=== PATIENT | male | born 1975 | race Caucasian/White ===

== ENCOUNTER 2017-05-17 14:47 | Emergency (ER) | payer OTHER ==
--- NOTE | 2017-05-17 15:18 | RAD ---
CHEST 1 VIEW: Date: 05/17/17 HISTORY: Cough. FINDINGS: The cardiac silhouette is magnified by projection. Pulmonary vasculature is unremarkable. Mediastinu m is midline. There is no confluent air space consolidation or evidence of pneumothorax. IMPRESSION: No active cardiopulmonary abnormalities are demonstrated. POS: [facility]
[2017-05-17 15:22] LABS: #Basophils 0.1 thou/uL (0.0-0.2); #Eosinphils 0.6 thou/uL (0.0-0.7); #Lymphocytes 2.1 thou/uL (1.20-3.40); #Monocytes 1.1 thou/uL (0.11-0.59); #Neutrophils 12.1 thou/uL (1.40-6.50); %Basophils 0.5 % (0.0-1.0); %Eosinophils 3.8 % (0.0-10.0); %Lymphocytes 13.3 % (21.0-51.0); %Neutrophils 75.5 % (42.0-75.0); Hemoglobin 16.5 g/dL (14.0-18.0); Mean Corpuscular HGB CONC 33.2 g/dL (32.0-36.0); Mean Corpuscular Hemoglobin 29.8 pg (27.0-31.0); Mean Corpuscular Volume 89.7 fl (80.0-94.0); Mean Platelet Volume 7.1 fL (7.4-10.4); Platelet Count 314 thou/uL (130-400); RBC Distribution Width 12.5 % (11.5-14.5); Red Blood Cell (RBC) Count 5.54 mill/uL (4.70-6.10)
[2017-05-17] MEDS ORDERED: Labetalol HCl 100 MG/20 ML VIAL ONE (15:29)
[2017-05-17] MEDS ORDERED: Aspirin 325 MG TAB ONE (15:29)
[2017-05-17 15:47] LABS: ALT (SGPT) 30 U/L (8-55); AST (SGOT) 22 U/L (5-34); Albumin 4.1 g/dL (3.5-5.0); Alkaline Phosphatase 96 U/L (40-150); Anion Gap 12 mmol/L (10-20); BUN (Urea Nitrogen) 20 mg/dL (8.9-20.6); Bilirubin, Total 0.4 mg/dL (0.2-1.2); Calc. Creatinine Clearance 0 mL/min (70-130); Calcium 9.4 mg/dL (7.8-10.44); Carbon Dioxide 28 mmol/L (22-29); Chloride 103 mmol/L (98-107); Estimated GFR-MDRD 70; Globulin 2.8 g/dL (2.4-3.5); Glucose 81 mg/dL (70-105); Potassium 5.3 mmol/L (3.5-5.1); Protein, Total 6.9 g/dL (6.0-8.3); Sodium 138 mmol/L (136-145)
[2017-05-17] MEDS ORDERED: NEOMYCIN-POLYMYXIN-HC EAR SUSP 200 DROP/10 ML BOT ONE (15:57)
[2017-05-17] MEDS ORDERED: Naproxen 500 MG TAB ONE (15:57)
[2017-05-17] MEDS ORDERED: Benzonatate 100 MG CAP ONE (15:57)
[2017-05-17] MEDS ORDERED: Cephalexin 500 MG CAP ONE (15:57)
[2017-05-17] MEDS ORDERED: Ondansetron HCl/PF 4 MG/2 ML Vial ONE (16:38)
[2017-05-17] MEDS ORDERED: Ketorolac Tromethamine 30 MG/ML VIAL ONE (16:38)
[2017-05-17] MEDS ORDERED: cloNIDine HCl 0.1 MG TAB ONE (17:22)
[2017-05-17 18:15] LABS: Acetaminophen Less than 6.0 mcg/mL (10.0-30.0); Alcohol Less than 10 mg/dL (Less than 10); Bacteria/HPF None Seen HPF (None Seen); Bilirubin Negative (Negative); Blood, Urine Negative (Negative); Clarity Clear (Clear); Glucose, Urine (Dipstick) Negative (Negative); Leukocyte Negative (Negative); Nitrite Negative (Negative); Other Microscopic Description C&S SET UP; Protein, Urine (Dipstick) Negative (Neg-Trace); RBC/HPF None Seen HPF (0-3); Salicylate Less than 8.0 mg/dL (15.0-30.0); Specific Gravity, Urine 1.025 (1.005-1.030); Squamous Epithelial 0-3 HPF (0-3); Urobilinogen 0.2 mg/dL (0.2-1.0); WBC/HPF None Seen HPF (0-3)
[2017-05-17 18:42] LABS: Amphetamine Detected (NotDetected); Barbiturates Screen Not Detected (NotDetected); Benzodiazepine Screen Not Detected (NotDetected); Cocaine Metabolite Screen Not Detected (NotDetected); Medtox Control Line Valid? VALID (VALID); Methadone Not Detected (NotDetected); Methamphetamine Detected (NotDetected); Opiate Screen Not Detected (NotDetected); Oxycodone Screen Not Detected (NotDetected); Phencyclidine (PCP) Not Detected (NotDetected); THC/Cannabinoid Screen Not Detected (NotDetected); Tricyclic Screen Not Detected (NotDetected)
== END 2017-05-17 19:10 | disposition home or self-care (01) ==
LOC: MADERS 14:47
DX: H60.91 Unspecified otitis externa, right ear (principal); J06.9 Acute upper respiratory infection, unspecified; F19.10 Other psychoactive substance abuse, uncomplicated; I10 Essential (primary) hypertension; F17.210 Nicotine dependence, cigarettes, uncomplicated
CPT/HCPCS: 36415; 71010; 80053; 80306; 80307; 81001; 85025; 87086; 96374; 96375; 96376; J1885; J2405

== ENCOUNTER 2018-10-06 12:32 | Emergency (ER) | payer OTHER ==
[2018-10-06 13:23] LABS: #Eosinphils 0.2 thou/uL (0.0-0.7); #Lymphocytes 1.5 thou/uL (1.20-3.40); #Monocytes 0.4 thou/uL (0.11-0.59); #Neutrophils 8.5 thou/uL (1.40-6.50); %Basophils 0.3 % (0.0-1.0); %Eosinophils 2.3 % (0.0-10.0); %Lymphocytes 13.7 % (21.0-51.0); %Monocytes 3.9 % (0.0-10.0); %Neutrophils 79.8 % (42.0-75.0); Hemoglobin 16.4 g/dL (14.0-18.0); Mean Corpuscular HGB CONC 32.2 g/dL (32.0-36.0); Mean Platelet Volume 7.4 fL (7.4-10.4); Platelet Count 285 thou/uL (130-400); RBC Distribution Width 11.9 % (11.5-14.5); Red Blood Cell (RBC) Count 5.85 mill/uL (4.70-6.10); White Blood Cell (WBC) Count 10.6 thou/uL (4.8-10.8)
[2018-10-06 13:36] LABS: ALT (SGPT) 58 U/L (8-55); AST (SGOT) 41 U/L (5-34); Albumin 3.8 g/dL (3.5-5.0); Alkaline Phosphatase 90 U/L (40-150); Anion Gap 13 mmol/L (10-20); BUN (Urea Nitrogen) 21 mg/dL (8.9-20.6); Bilirubin, Total 0.4 mg/dL (0.2-1.2); Calc. Creatinine Clearance 0 mL/min (70-130); Calcium 9.1 mg/dL (7.8-10.44); Carbon Dioxide 26 mmol/L (22-29); Chloride 104 mmol/L (98-107); Estimated GFR-MDRD 75; Globulin 2.7 g/dL (2.4-3.5); Glucose 192 mg/dL (70-105); Potassium 4.1 mmol/L (3.5-5.1); Protein, Total 6.5 g/dL (6.0-8.3); Sodium 139 mmol/L (136-145)
[2018-10-06] MEDS ORDERED: Nitroglycerin 2% Ointment 1 INCH/1 GM Packet ONE (13:53)
[2018-10-06] MEDS ORDERED: Aspirin 325 MG TAB ONE (13:53)
[2018-10-06] MEDS ORDERED: Nitroglycerin 0.4 MG TAB 1 EACH ONE (13:53)
[2018-10-06 13:56] LABS: CKMB 1.5 ng/mL (0-6.6)
--- NOTE | 2018-10-06 13:56 | RAD ---
CHEST 1 VIEW: Date: 10/06/18 INDICATION: Dyspnea. COMPARISON: Prior exam dated 05/17/17. FINDINGS: There is stable cardiomegaly. Lungs are clear. No pleural effusion is evident. No acute osseous abnor mality is evident. IMPRESSION: Stable cardiomegaly. POS: [facility]
== END 2018-10-06 15:52 | disposition short-term general hospital (02) ==
LOC: MADERS 12:32 → EEVIPCON 12:32 → MADERS 15:52
DX: R07.9 Chest pain, unspecified (principal); R94.31 Abnormal electrocardiogram [ECG] [EKG]; I10 Essential (primary) hypertension; F17.210 Nicotine dependence, cigarettes, uncomplicated
CPT/HCPCS: 36415; 71045; 80053; 82553; 83880; 84484; 85025; 93005

== ENCOUNTER 2018-10-10 16:33 | Emergency (ER) | payer SELFPAY | END 2018-10-10 17:00 | disposition home or self-care (01) | LOC: MADERS 16:33 | DX: S30.1XXA Contusion of abdominal wall, initial encounter (principal); I10 Essential (primary) hypertension; F17.210 Nicotine dependence, cigarettes, uncomplicated; X58.XXXA Exposure to other specified factors, initial encounter | CPT/HCPCS: 99283 ==

== ENCOUNTER 2021-08-16 18:24 | Emergency (ER) | payer SELFPAY ==
[2021-08-16 19:28] LABS: #Basophils 0.1 thou/uL (0.0-0.2); #Eosinphils 0.1 thou/uL (0.0-0.7); #Lymphocytes 1.1 thou/uL (1.20-3.40); #Monocytes 0.6 thou/uL (0.11-0.59); #Neutrophils 8.7 thou/uL (1.40-6.50); %Eosinophils 1.4 % (0.0-10.0); %Lymphocytes 10.2 % (21.0-51.0); %Monocytes 5.2 % (0.0-10.0); %Neutrophils 82.2 % (42.0-75.0); Hemoglobin 16.2 g/dL (14.0-18.0); Mean Corpuscular HGB CONC 31.7 g/dL (32.0-36.0); Mean Corpuscular Hemoglobin 28.5 pg (27.0-31.0); Mean Corpuscular Volume 89.8 fL (78.0-98.0); Mean Platelet Volume 7.7 fL (7.4-10.4); Platelet Count 232 thou/uL (130-400); RBC Distribution Width 13.6 % (11.5-14.5); Red Blood Cell (RBC) Count 5.68 mill/uL (4.70-6.10); White Blood Cell (WBC) Count 10.5 thou/uL (4.8-10.8)
[2021-08-16 19:45] LABS: ALT (SGPT) 29 U/L (8-55); AST (SGOT) 22 U/L (5-34); Albumin 3.7 g/dL (3.5-5.0); Alkaline Phosphatase 67 U/L (40-110); Anion Gap 13 mmol/L (10-20); BUN (Urea Nitrogen) 20 mg/dL (8.9-20.6); Bilirubin, Total 1.4 mg/dL (0.2-1.2); Calc. Creatinine Clearance 0 mL/min (70-130); Calcium 9.6 mg/dL (7.8-10.44); Carbon Dioxide 25 mmol/L (22-29); Chloride 105 mmol/L (98-107); Globulin 2.4 g/dL (2.4-3.5); Glucose 121 mg/dL (70-105); Potassium 4.5 mmol/L (3.5-5.1); Protein, Total 6.1 g/dL (6.0-8.3); Sodium 138 mmol/L (136-145)
[2021-08-16 20:15] LABS: Bilirubin Small (Negative); Blood, Urine Trace (Negative); Clarity Clear (Clear); Glucose, Urine (Dipstick) Negative (Negative); Ketone, Urine Negative (Negative); Leukocyte Negative (Negative); Nitrite Negative (Negative); Protein, Urine (Dipstick) 100 mg/dL (Neg-Trace); Specific Gravity, Urine 1.025 (1.005-1.030); Urobilinogen 0.2 mg/dL (Less than 2); pH, Urine 5.5 (5.0-9.0)
[2021-08-16 20:16] LABS: CKMB 5.8 ng/mL (0-6.6)
[2021-08-16 20:22] LABS: RBC/HPF 0-3 HPF (0-3); Squamous Epithelial 0-3 HPF (0-3); WBC/HPF None Seen HPF (0-3)
[2021-08-16 20:23] LABS: Mucous/LPF 3+ LPF (<2+)
[2021-08-16 20:25] LABS: Amphetamine Detected (NotDetected); Barbiturates Screen Not Detected (NotDetected); Benzodiazepine Screen Not Detected (NotDetected); Cocaine Metabolite Screen Not Detected (NotDetected); Medtox Control Line Valid? VALID (VALID); Methadone Not Detected (NotDetected); Methamphetamine Detected (NotDetected); Opiate Screen Not Detected (NotDetected); Oxycodone Screen Not Detected (NotDetected); Phencyclidine (PCP) Not Detected (NotDetected); THC/Cannabinoid Screen Not Detected (NotDetected); Tricyclic Screen Not Detected (NotDetected)
[2021-08-16] MEDS ORDERED: Aspirin Chewable 81 MG TAB ONE (21:32)
[2021-08-16] MEDS ORDERED: Furosemide 40 MG/4 ML VIAL ONE (21:32)
[2021-08-16] MEDS ORDERED: methylPREDNISolone Sod Succ/PF 125 MG/2 ML VIAL ONE (23:04)
[2021-08-16 23:44] LABS: CKMB 5.2 ng/mL (0-6.6)
[2021-08-17 20:39] LABS: SARS-CoV-2 PCR by NAA Not Detected (NotDetected)
== END 2021-08-17 00:14 | disposition home or self-care (01) ==
LOC: MADERS 18:24
DX: J44.1 Chronic obstructive pulmonary disease with (acute) exacerbation (principal); I25.9 Chronic ischemic heart disease, unspecified; I11.0 Hypertensive heart disease with heart failure; I50.9 Heart failure, unspecified; F15.10 Other stimulant abuse, uncomplicated; Z20.822 Contact with and (suspected) exposure to COVID-19; F17.210 Nicotine dependence, cigarettes, uncomplicated
CPT/HCPCS: 71045; 80053; 80306; 81003; 81015; 82550; 82553; 83880; 84484; 85025; 85379; 86140; 87804; 93005; 96374; 96375; 99407; J1940; J2930; J7620; U0003; U0005

== ENCOUNTER 2022-10-18 16:25 | Emergency (ER) | payer SELFPAY ==
[~2022-10-18 16:25] MED LIST: Iopamidol 370 76% 100 ML VIAL ONE
[2022-10-18] MEDS ORDERED: Ipratropium/Albuterol 3 ML NEB ONE (16:56)
[2022-10-18] MEDS ORDERED: Furosemide 40 MG/4 ML VIAL ONE (16:56)
[2022-10-18 17:15] LABS: #Basophils 0.2 thou/uL (0.0-0.2); #Eosinphils 1.7 thou/uL (0.0-0.7); #Monocytes 0.9 thou/uL (0.11-0.59); #Neutrophils 5.4 thou/uL (1.40-6.50); %Basophils 2.3 % (0.0-1.0); %Eosinophils 16.9 % (0.0-10.0); %Lymphocytes 19.7 % (21.0-51.0); %Monocytes 8.4 % (0.0-10.0); %Neutrophils 52.7 % (42.0-75.0); Hemoglobin 17.4 g/dL (14.0-18.0); Mean Corpuscular HGB CONC 32.6 g/dL (32.0-36.0); Mean Corpuscular Hemoglobin 28.5 pg (27.0-31.0); Mean Corpuscular Volume 87.2 fl (78.0-98.0); Mean Platelet Volume 8.4 fL (7.4-10.4); Platelet Count 208 10x3/uL (130-400); RBC Distribution Width 12.9 % (11.5-14.5); Red Blood Cell (RBC) Count 6.12 mill/uL (4.70-6.10); White Blood Cell (WBC) Count 10.3 10x3/uL (4.8-10.8)
[2022-10-18 17:26] LABS: INR-International Normal Ratio 1.2; PTT 25.6 sec (22.9-36.1); Prothrombin Time 15.5 sec (12.0-14.7)
[2022-10-18 17:33] LABS: ALT (SGPT) 39 U/L (8-55); AST (SGOT) 41 U/L (5-34); Albumin 3.9 g/dL (3.5-5.0); Alkaline Phosphatase 71 U/L (40-110); Anion Gap 18 mmol/L (10-20); BUN (Urea Nitrogen) 17 mg/dL (8.9-20.6); Bilirubin, Total 2.1 mg/dL (0.2-1.2); Calc. Creatinine Clearance 0 mL/min (70-130); Carbon Dioxide 21 mmol/L (22-29); Chloride 106 mmol/L (98-107); Estimated GFR 70; Globulin 1.7 g/dL (2.4-3.5); Glucose 102 mg/dL (70-105); Potassium 4.6 mmol/L (3.5-5.1); Protein, Total 5.6 g/dL (6.0-8.3); Sodium 140 mmol/L (136-145)
[2022-10-18] MEDS ORDERED: Nitroglycerin 2% Ointment 1 INCH/1 GM Packet ONE (17:42)
[2022-10-18] MEDS ORDERED: Aspirin 325 MG TAB ONE (17:42)
[2022-10-18 17:54] LABS: CKMB 4.8 ng/mL (0-6.6)
[2022-10-18] MEDS ORDERED: Sodium Chloride 0.9% 100 ML ONE (18:43)
[2022-10-18] MEDS ORDERED: cefTRIAXone\\ROCEPHIN 2 GM VIAL ONE (18:43)
[2022-10-18] MEDS ORDERED: Sodium Chloride 0.9% 250 ML 250 ML ONE (19:44)
[2022-10-18] MEDS ORDERED: Azithromycin 500 MG VIAL ONE (19:44)
[2022-10-18 19:53] LABS: SARS-CoV-2 NAA Rapid Test Not Detected (NotDetected)
[2022-10-18 20:43] LABS: Acetaminophen Less than 10.0 mcg/mL (10.0-30.0); Alcohol Less than 10 mg/dL (Less than 10); Salicylate Less than 8.0 mg/dL (15.0-30.0)
[2022-10-18 21:00] LABS: Cocaine Metabolite Screen Not Detected (NotDetected); Methamphetamine Detected (NotDetected); Phencyclidine (PCP) Not Detected (NotDetected); THC/Cannabinoid Screen Detected (NotDetected)
[2022-10-18 21:01] LABS: Amphetamine Detected (NotDetected); Barbiturates Screen Not Detected (NotDetected); Benzodiazepine Screen Not Detected (NotDetected); Medtox Control Line Valid? VALID (VALID); Methadone Not Detected (NotDetected); Opiate Screen Not Detected (NotDetected); Oxycodone Screen Not Detected (NotDetected); Tricyclic Screen Not Detected (NotDetected)
== END 2022-10-18 21:21 | disposition short-term general hospital (02) ==
LOC: MADERS 16:25
DX: I11.0 Hypertensive heart disease with heart failure (principal); I50.9 Heart failure, unspecified; I44.7 Left bundle-branch block, unspecified; I26.93 Single subsegmental thrombotic pulmonary embolism without acute cor pulmonale; Z20.822 Contact with and (suspected) exposure to COVID-19; E78.00 Pure hypercholesterolemia, unspecified; J44.9 Chronic obstructive pulmonary disease, unspecified; Z87.891 Personal history of nicotine dependence; Z79.82 Long term (current) use of aspirin
CPT/HCPCS: 36415; 71045; 71275; 80053; 80306; 80307; 82553; 83605; 83880; 84484; 85025; 85379; 85610; 85730; 87040; 93005; 96365; 96367; 96372; 96375; J0456; J0696; J1650; J1940; J3490; J7050; J7620; Q9967; U0002

== ENCOUNTER 2023-06-01 17:53 | Emergency (ER) | payer OTHER, SELFPAY ==
[2023-06-01] MEDS ORDERED: Meropenem 1 GM VIAL ONE (19:05)
[2023-06-01] MEDS ORDERED: Vancomycin 1 GM VIAL ONE (19:05)
[2023-06-01] MEDS ORDERED: Sodium Chloride 0.9% 1,000 ML ONE ×2 (19:05→20:44)
[2023-06-01] MEDS ORDERED: Clindamycin/D5W 900 mg/50 ml Premix Bag ONE (19:05)
[2023-06-01] MEDS ORDERED: Sodium Chloride 0.9% 250 ML 250 ML ONE (19:06)
[2023-06-01] MEDS ORDERED: Sodium Chloride 0.9% 100 ML ONE (19:06)
[2023-06-01 19:20] LABS: INR-International Normal Ratio 2.2; Prothrombin Time 25.4 sec (12.0-14.7)
[2023-06-01 19:23] LABS: Hematocrit 42.6 % (42.0-52.0); Hemoglobin 13.2 g/dL (14.0-18.0); Mean Corpuscular Hemoglobin 25.4 pg (27.0-31.0); Mean Platelet Volume 8.8 fL (7.4-10.4); Platelet Count 239 10x3/uL (130-400); RBC Distribution Width 19.4 % (11.5-14.5); White Blood Cell (WBC) Count 20.9 10x3/uL (4.8-10.8)
[2023-06-01 19:28] LABS: Base Excess-Venous 0.8 mmol/L (-2.0 to 3.0); Bicarbonate (HCO3v) 24.5 mmol/L (22.0-28.0); CO2 Tension (PvCO2) 35.7 mmHg (42.0-51.0); Calcium, Ionized 1.02 mmol/L (1.15-1.33); Chloride 96 mmol/L (98-107); Hemoglobin - Calc 15.5 g/dL (14.0-18.0); Potassium 3.4 mmol/L (3.5-5.1); Sodium 132 mmol/L (138-145); T. Carbon Dioxide 25.6 mmol/L (22.0-28.0); vO2 Saturation-calc 98.7 % (60.0-85.0)
[2023-06-01 19:31] LABS: ALT (SGPT) 47 U/L (8-55); AST (SGOT) 101 U/L (5-34); Albumin 2.6 g/dL (3.5-5.0); Alkaline Phosphatase 82 U/L (40-110); Anion Gap 21 mmol/L (10-20); BUN (Urea Nitrogen) 30 mg/dL (8.9-20.6); Bilirubin, Total 3.9 mg/dL (0.2-1.2); CK (CPK) 1762 U/L (30-200); Calc. Creatinine Clearance 0 mL/min (70-130); Calcium 7.9 mg/dL (7.8-10.44); Carbon Dioxide 20 mmol/L (22-29); Chloride 96 mmol/L (98-107); Estimated GFR 61; Globulin 2.2 g/dL (2.4-3.5); Glucose 116 mg/dL (70-105); Potassium 3.6 mmol/L (3.5-5.1); Protein, Total 4.8 g/dL (6.0-8.3); Sodium 133 mmol/L (136-145)
[2023-06-01 19:36] LABS: Band 19 % (5-11); Eosinophils 1 % (0-10); Lymphocytes 3 % (21-51); MDiff Complete? YES; Monocytes 2 % (0-10); Neutrophil 75 % (42-75); Platelet Adequacy Comment Appears Adequate
[2023-06-01 19:40] LABS: Acetaminophen Less than 10 mcg/mL (10.0-30.0); Alcohol Less than 10.0 mg/dL (Less than 10); Lipase 9 U/L (8-78); Magnesium 1.4 mg/dL (1.6-2.6); Salicylate Less than 8.0 mg/dL (15.0-30.0)
[2023-06-01 20:04] LABS: Troponin I 0.331 ng/mL (< 0.028)
[2023-06-01] MEDS ORDERED: Morphine 2 MG/ML VIAL ONE (20:38)
[2023-06-01] MEDS ORDERED: Magnesium 2 GM/50 ML BAG (IN WATER) ONE (20:44)
[2023-06-01 23:23] LABS: Cocaine Metabolite Screen Not Detected (NotDetected); Methamphetamine Detected (NotDetected); Opiate Screen Detected (NotDetected); Phencyclidine (PCP) Not Detected (NotDetected); THC/Cannabinoid Screen Not Detected (NotDetected)
[2023-06-01 23:24] LABS: Amphetamine Detected (NotDetected); Barbiturates Screen Not Detected (NotDetected); Benzodiazepine Screen Not Detected (NotDetected); Bilirubin Moderate (Negative); Blood, Urine Negative (Negative); CAUTI Indications for Culture Alt mental st,lethar; Clarity Slightly Cloudy (Clear); Glucose, Urine (Dipstick) Negative (Negative); Ketone, Urine Negative (Negative); Leukocyte Negative (Negative); Methadone Not Detected (NotDetected); Nitrite Negative (Negative); Oxycodone Screen Not Detected (NotDetected); Protein, Urine (Dipstick) 30 mg/dL (Neg-Trace); RBC/HPF 0-3 HPF (0-3); Specific Gravity, Urine 1.028 (1.002-1.036); Squamous Epithelial 0-3 HPF (0-3); Tricyclic Screen Not Detected (NotDetected); WBC/HPF 0-3 HPF (0-3); pH, Urine 5.5 (5.0-9.0)
[2023-06-01 23:25] LABS: Bacteria/HPF 3+ HPF (None Seen); Urine Culture Reflex No No
== END 2023-06-01 23:15 | disposition short-term general hospital (02) ==
LOC: MADERS 17:53
DX: R41.82 Altered mental status, unspecified (principal); L03.113 Cellulitis of right upper limb; I11.0 Hypertensive heart disease with heart failure; I50.9 Heart failure, unspecified; J44.9 Chronic obstructive pulmonary disease, unspecified; Z87.891 Personal history of nicotine dependence
CPT/HCPCS: 51701; 70450; 70486; 71045; 72125; 80053; 80306; 80307; 81001; 82330; 82550; 82803; 83605; 83690; 83735; 83880; 84443; 84484; 85025; 85610; 86140; 87040; 87077; 87149; 87186; 96365; 96366; 96367; 96375; J2185; J2272; J3370; J3475; J3490; J7050

== ENCOUNTER 2024-04-25 12:26 | Emergency (ER) | payer MEDICAID, OTHER ==
[~2024-04-25 12:26] MED LIST changes: +Sodium Chloride 0.9% 100 ML BAG ONE
[2024-04-25] MEDS ORDERED: Sodium Chloride 0.9% 250 ML 250 ML ONE (13:19)
[2024-04-25] MEDS ORDERED: Albuterol 2.5 MG (3 mL) NEB ONE (13:19)
[2024-04-25] MEDS ORDERED: Ipratropium Bromide 2.5 ml Neb ONE (13:19)
[2024-04-25] MEDS ORDERED: Azithromycin 500 MG VIAL ONE (13:19)
[2024-04-25] MEDS ORDERED: Sodium Chloride 0.9% 100 ML ONE (13:19)
[2024-04-25] MEDS ORDERED: Albuterol 2.5 MG (0.5 mL) NEB ONE (13:19)
[2024-04-25] MEDS ORDERED: cefTRIAXone (ROCEPHIN) 2 GM VIAL ONE (13:19)
[2024-04-25] MEDS ORDERED: methylPREDNISolone Sod Succ/PF 125 MG/2 ML VIAL ONE (13:19)
[2024-04-25] MEDS ORDERED: Furosemide 40 MG (4 mL) VIAL ONE ×2 (13:19→14:27)
[2024-04-25 13:27] LABS: INR-International Normal Ratio 1.7; Prothrombin Time 19.6 sec (12.0-14.7)
[2024-04-25 13:28] LABS: PTT 36.1 sec (22.9-36.1)
[2024-04-25 13:34] LABS: #Basophils 0.2 thou/uL (0.0-0.2); #Eosinphils 0.2 thou/uL (0.0-0.7); #Lymphocytes 0.7 thou/uL (1.20-3.40); #Monocytes 0.9 thou/uL (0.11-0.59); #Neutrophils 10.8 thou/uL (1.40-6.50); %Basophils 1.2 % (0.0-1.0); %Eosinophils 1.7 % (0.0-10.0); %Lymphocytes 5.6 % (21.0-51.0); %Monocytes 7.2 % (0.0-10.0); %Neutrophils 84.2 % (42.0-75.0); Anisocytosis SLIGHT = 6-15 cells (100X) (0-5/hpf); Hematocrit 47.9 % (42.0-52.0); Hemoglobin 13.7 g/dL (14.0-18.0); Hypochromia SLIGHT = 6-15 cells (100X) (0-5/hpf); MDiff Complete? YES; Mean Corpuscular HGB CONC 28.6 g/dL (32.0-36.0); Mean Corpuscular Volume 77.2 fl (78.0-98.0); Mean Platelet Volume 7.9 fL (7.4-10.4); Platelet Adequacy Comment Appears Adequate; Platelet Count 204 10x3/uL (130-400); RBC Distribution Width 19.2 % (11.5-14.5); White Blood Cell (WBC) Count 12.8 10x3/uL (4.8-10.8)
[2024-04-25 13:37] LABS: ALT (SGPT) 15 U/L (8-55); AST (SGOT) 38 U/L (5-34); Albumin 2.8 g/dL (3.5-5.0); Alkaline Phosphatase 116 U/L (40-110); Anion Gap 19 mmol/L (10-20); BUN (Urea Nitrogen) 16 mg/dL (8.9-20.6); Bilirubin, Total 2.8 mg/dL (0.2-1.2); Calc. Creatinine Clearance 0 mL/min (70-130); Calcium 8.6 mg/dL (7.8-10.44); Carbon Dioxide 17 mmol/L (22-29); Chloride 104 mmol/L (98-107); Estimated GFR 92; Globulin 3.5 g/dL (2.4-3.5); Glucose 96 mg/dL (70-105); Magnesium 1.6 mg/dL (1.6-2.6); Potassium 4.3 mmol/L (3.5-5.1); Protein, Total 6.3 g/dL (6.0-8.3); Sodium 136 mmol/L (136-145)
[2024-04-25 13:39] LABS: Troponin I 0.096 ng/mL (< 0.028)
[2024-04-25 13:49] LABS: SARS-CoV-2 E Target Negative; SARS-CoV-2 N2 Target Negative; SARS-CoV-2 NAA Rapid Test Not Detected (NotDetected); SARS-CoV-2 RdRP gene Negative
[2024-04-25 14:12] LABS: Base Excess-Venous -1.1 mmol/L (-2.0 to 3.0); CO2 Tension (PvCO2) 40.8 mmHg (42.0-51.0); Calcium, Ionized 1.16 mmol/L (1.15-1.33); Chloride 103 mmol/L (98-107); Hemoglobin - Calc 16.3 g/dL (14.0-18.0); Potassium 3.7 mmol/L (3.5-5.1); Sodium 136 mmol/L (138-145); T. Carbon Dioxide 25.3 mmol/L (22.0-28.0); vO2 Saturation-calc 85.7 % (60.0-85.0)
[2024-04-25] MEDS ORDERED: Nitroglycerin 2% Ointment 1 INCH/1 GM Packet ONE (16:32)
[2024-04-25 16:38] LABS: Troponin I 0.104 ng/mL (< 0.028)
== END 2024-04-25 17:10 | disposition short-term general hospital (02) ==
LOC: MADERS 12:26
DX: I11.0 Hypertensive heart disease with heart failure (principal); I50.9 Heart failure, unspecified; J44.1 Chronic obstructive pulmonary disease with (acute) exacerbation; R09.02 Hypoxemia; I21.4 Non-ST elevation (NSTEMI) myocardial infarction; I45.81 Long QT syndrome; I25.10 Atherosclerotic heart disease of native coronary artery without angina pectoris; Z79.899 Other long term (current) drug therapy; Z79.01 Long term (current) use of anticoagulants; Z79.82 Long term (current) use of aspirin; Z87.891 Personal history of nicotine dependence
CPT/HCPCS: 71275; 80053; 82330; 82435; 82803; 83605; 83735; 83880; 84132; 84295; 84484; 85014; 85025; 85610; 85730; 87040; 87149; 87804; 93005; 94760; 96365; 96375; 96376; J0456; J0696; J1940; J2919; J7050; J7611; J7644; Q9967; U0002

== ENCOUNTER 2025-03-16 14:27 | Emergency (ER) | payer SELFPAY ==
[2025-03-16 15:48] LABS: #Basophils 0.1 thou/uL (0.0-0.2); #Eosinophils 0.5 thou/uL (0.0-0.7); #Lymphocytes 1.5 thou/uL (1.20-3.40); #Monocytes 1.3 thou/uL (0.11-0.59); #Neutrophils 10.9 thou/uL (1.40-6.50); %Basophils 1.0 % (0.0-1.0); %Eosinophils 3.7 % (0.0-10.0); %Lymphocytes 10.1 % (21.0-51.0); %Monocytes 8.7 % (0.0-10.0); %Neutrophils 76.4 % (42.0-75.0); Hematocrit 50.6 % (42.0-52.0); Hemoglobin 15.4 g/dL (14.0-18.0); Mean Corpuscular Hemoglobin 25.9 pg (27.0-31.0); Mean Corpuscular Volume 85.2 fl (78.0-98.0); Platelet Count 185 10x3/uL (130-400); Red Blood Cell (RBC) Count 5.93 mill/uL (4.70-6.10); White Blood Cell (WBC) Count 14.3 10x3/uL (4.8-10.8)
[2025-03-16 16:02] LABS: Troponin I 0.086 ng/mL (< 0.028)
[2025-03-16 16:03] LABS: ALT (SGPT) 68 U/L (Less than 45); AST (SGOT) 104 U/L (11-34); Albumin 3.2 g/dL (3.1-4.5); Alkaline Phosphatase 103 U/L (40-110); Anion Gap 12 mmol/L (10-20); BUN (Urea Nitrogen) 36 mg/dL (8.9-20.6); Bilirubin, Total 4.3 mg/dL (0.3-1.2); CK (CPK) 198 U/L (30-200); Calc. Creatinine Clearance 0 mL/min (70-130); Calcium 8.8 mg/dL (7.8-10.44); Carbon Dioxide 25 mmol/L (22-29); Chloride 103 mmol/L (98-107); Globulin 2.5 g/dL (2.4-3.5); Glucose 141 mg/dL (70-105); Magnesium 1.6 mg/dL (1.6-2.6); Potassium 4.4 mmol/L (3.5-5.1); Sodium 136 mmol/L (136-145)
[2025-03-16] MEDS ORDERED: Aspirin Chewable 81 MG TAB ONE (16:57)
[2025-03-16] MEDS ORDERED: Furosemide 40 MG (4 mL) VIAL ONE (18:04)
[2025-03-16 19:48] LABS: Cocaine Metabolite Screen Negative (Negative); THC/Cannabinoid Screen Negative (Negative); Tricyclic Screen Negative (Negative)
[2025-03-16] MEDS ORDERED: Enoxaparin 100 MG (1 mL) SYRINGE ONE (20:32)
[2025-03-16 20:51] LABS: Troponin I 0.084 ng/mL (< 0.028)
== END 2025-03-16 20:43 | disposition short-term general hospital (02) ==
LOC: MADERS 14:27
DX: A41.9 Sepsis, unspecified organism (principal); R65.20 Severe sepsis without septic shock; N17.9 Acute kidney failure, unspecified; L03.116 Cellulitis of left lower limb; R07.9 Chest pain, unspecified; K74.60 Unspecified cirrhosis of liver; I11.0 Hypertensive heart disease with heart failure; I50.9 Heart failure, unspecified; R18.8 Other ascites; R79.89 Other specified abnormal findings of blood chemistry; F15.20 Other stimulant dependence, uncomplicated; J44.9 Chronic obstructive pulmonary disease, unspecified; E86.0 Dehydration; J96.00 Acute respiratory failure, unspecified whether with hypoxia or hypercapnia; Z86.73 Personal history of transient ischemic attack (TIA), and cerebral infarction without residual deficits; Z87.891 Personal history of nicotine dependence; Z79.82 Long term (current) use of aspirin; Z79.01 Long term (current) use of anticoagulants; Z79.899 Other long term (current) drug therapy
CPT/HCPCS: 70450; 71250; 74177; 80053; 80306; 82550; 83605; 83735; 83880; 84484; 85025; 85379; 87040; 93005; 96365; 96367; 96372; 96375; J1650; J1940; J2543; J3373; J7050; J7620